=== PATIENT | male | born 1960 | race Caucasian/White ===

== ENCOUNTER 2024-07-03 16:02 | Outpatient (REF) | payer SELFPAY ==
[2024-07-03 17:53] LABS: MANUAL DIFF FLAG NO
[2024-07-03 18:05] LABS: Basophils Absolute Auto 0.1 X10*3/uL (0.0-0.2); Basophils Percent Auto 1.1 % (0-2); Eosinophils Absolute Auto 0.2 X10*3/uL (0.0-0.4); Eosinophils Percent Auto 1.7 % (0-4); Imm Gran Abs Auto 0.06 X10*3/uL (0.00-0.03); Imm Gran Pct Auto 0.6 % (0.0-0.4); Lymphocytes Absolute Auto 0.9 X10*3/uL (1.2-4.9); Lymphocytes Percent Auto 8.3 % (20-40); Mean Corpuscular HGB Conc 35.4 g/dl (31.0-36.0); Mean Corpuscular Hemoglobin 36.7 pg (27.0-33.0); Mean Corpuscular Volume 103.6 fL (80.0-98.0); Mean Platelet Volume 11.6 fL (9.4-12.4); Monocytes Absolute Auto 0.5 X10*3/uL (0.1-1.2); Monocytes Percent Auto 4.7 % (2-11); Neutrophils Absolute Auto 9.1 x10*3/uL (2.0-8.3); Neutrophils Percent Auto 83.6 % (45-73); Red Blood Count 1.69 X10*6/uL (4.60-5.80); Red Cell Distribution Width 23.9 % (11.0-16.0); White Blood Count 10.9 X10*3/uL (4.8-10.8)
[2024-07-03 18:30] LABS: Alanine Aminotransferase 30 U/L (0-40); Albumin Level 3.9 g/dL (3.5-5.0); Alkaline Phosphatase 73 U/L (39-117); Anion Gap 12 (12-20); Aspartate Amino Transferase 23 U/L (5-37); Bilirubin Total 0.4 mg/dL (0.0-1.0); Blood Urea Nitrogen 22 mg/dL (9-16); Calcium 8.6 mg/dL (8.4-10.2); Carbon Dioxide 21 mmol/L (22-29); Chloride 114 mmol/L (96-108); Estimated Glomerular Filt Rate > 60; Glucose Random 107 mg/dL (60-115); Potassium 3.7 mmol/L (3.3-5.1); Sodium 143 mmol/L (135-145); Total Protein 6.6 g/dL (6.5-8.0)
[2024-07-03 18:44] LABS: Prostate Specific Antigen 0.18 ng/mL (<0.05-4.0)
[2024-07-03 22:05] LABS: Platelet Count 70 X10*3/uL (160-400)
[2024-07-03 22:08] LABS: Hemoglobin 6.2 g/dl (14.0-18.0)
[2024-07-03 22:10] LABS: Hematocrit 17.5 % (42.0-52.0)
== END 2024-07-03 16:03 | disposition home or self-care (01) ==
LOC: HO.MANLDS 16:02
PROVIDERS: Visit Provider Internal Medicine
DX: K92.2 Gastrointestinal hemorrhage, unspecified (principal); Z12.5 Encounter for screening for malignant neoplasm of prostate
CPT/HCPCS: 36415; 80053; 84153; 85025

== ENCOUNTER 2024-11-04 15:37 | Outpatient (REF) | payer SELFPAY ==
[2024-11-04 17:55] LABS: MANUAL DIFF FLAG NO
[2024-11-04 18:11] LABS: Magnesium 2.1 mg/dL (1.6-2.6)
--- OUTSIDE RECORDS SUMMARY | 2024-11-04 18:50 | XMS_ITS | Data Portability ---
Author Organization [facility] Home Service Address [address] [place] [address] Assessment Encounter Date Assessment Date Assessment LastModified by Organization Details LastModified Time 07/03/2024 07/03/2024 we will try to get the records Not available 07/03/2024 15:48:23 08/31/2024 08/31/2024 [id number] [place] [id number] (PHILOSOPHY PROFESSOR) MDM MODERATE MUST MEET 2 OUT OF 3 ELEMENTS: PROBLEMS, DATA OR RISK ELEMENT 1: PROBLEMS ADDRESSED 1 OR MORE CHRONIC ILLNESS WITH EXACERBATION OR 2 OR MORE STABLE CHRONIC ILLNESSES OR 1 UNDIAGNOSED NEW PROBLEM OR 1 ACUTE ILLNESS W/SYMPTOMS OR 1 ACUTE COMPLICATED INJURY ELEMENT 2: DATA MUST MEET 1 OF 3 CATEGORIES CATEGORY 1: REVIEW OF PRIOR EXTERNAL NOTES, REVIEW OF RESULTS, ORDERING OF EACH TEST, ASSESSMENT REQUIRING INDEPENDENT HISTORIAN OR CATEGORY 2: INDEPENDENT INTERPRETATION OF TESTS BY ANOTHER PHYSICIAN OR SPECIALIST OR CATEGORY 3: DISCUSSION OF MGT OR TEST INTERPRETATION W/EXTERNAL PHYSICIAN OR SPECIALIST ELEMENT 3: RISK RISK OF COMPLICATIONS AND/OR MORBIDITY OR MORTALITY OF PATIENT MANAGEMENT PROVIDER MUST THOROUGHLY DOCUMENT EACH ELEMENT THAT IS COVERED Not available 08/31/2024 15:40:17 2024 2024 [id number] [place] [id number] (PHILOSOPHY PROFESSOR) MDM HIGH MUST MEET 2 OUT OF 3 ELEMENTS: PROBLEMS, DATA OR RISK ELEMENT 1: PROBLEMS 1 OR MORE CHRONIC ILLNESS W/SEVERE EXACERBATION, PROGRESSION MAY REQUIRE HOSPITAL LEVEL CARE OR 1 ACUTE OR CHRONIC ILLNESS OR INJURY THAT POSES A THREAT TO LIFE OR BODILY FUNCTION ELEMENT 2: DATA: MUST MEET 2 OF 3 CATEGORIES CATEGORY 1 REVIEW OF PRIOR EXTERNAL NOTES REVIEW OF THE RESULTS ORDERING OF EACH TEST ASSESSMENT REQUIRING INDEPENDENT HISTORIAN(S) CATEGORY 2: INDEPENDENT INTERPRETATION OF TESTS BY ANOTHER PROVIDER/SPECIALI ST CATEGORY 3: DISCUSSION OF MGT OR TEST INTERPRETATION W/EXTERNAL PHYSICIAN/SPECIAL IST ELEMENT 3: RISK HIGH RISK OF MORBIDITY FROM ADDITIONAL DIAGNOSTIC TESTING OR TREATMENT PROVIDER MUST THOROUGHLY DOCUMENT EACH ELEMENT THAT IS COVERED The patient presented to their appointment today for multiple concerns requiring moderate to high-level decision making and took over 40-45 minutes for an adequate and appropriate history, exam, assessment and treatment plan. This appointment was done with an established patient. Not available 2024 15:27:09 Plan of Treatment Reminders Order Date Submit Date Provider Last Modified By Organization Details Last Modified Time Details Appointments FOLLOW UP 15 2024 03:15P M DR HOWELL Not available Not available Not available FOLLOW UP 15 2024 04:00P M DR HOWELL Not available Not available Not available Lab magnesium , serum or plasma 2024 025 [facility], [address] [place] [address], [id number], 2024 15:32:22 CBC w/ auto diff 2024 025 [facility], [address] [place] [address], [id number], 2024 15:32:22 CBC w/ auto diff 2023 024 [facility] (Outpatient), [address] [place] [address], [id number], 09/01/2024 01:06:11 CBC w/ auto diff 2023 025 [facility] (Outpatient), [address] [place] [address], [id number], 10/17/2024 11:10:11 CBC w/ auto diff 2024 025 [facility] (Outpatient), [address] [place] [address], [id number], 10/17/2024 11:10:11 PSA, serum or plasma 2023 024 [facility], [address] [place], [id number], 07/03/2024 16:05:40 CBC w/ auto diff 2023 [facility], [address] [place] [address], [id number], 07/11/2024 09:54:37 CMP, serum or plasma 2023 024 [facility], [address] [place] [address], [id number], 07/06/2024 11:57:46 Referral colon & rectal surgeon referral - having recurrent bleeding and relates feeling mass in rectum that prolapses out 2023 [facility] Scheduling Dept, [address] [place] [address], [id number], 10/12/2024 10:20:27 Procedures None recorded. Surgeries None recorded. Imaging None recorded. Medication Orders None recorded. Patient TargetsNo targets recorded. Patient Instructions Encounter Date Encounter Id Patient Instructions Last Modified By Organization Details Last Modified Time 08/31/2024 [id number] anemia: care instructions Not available 08/31/2024 15:44:32 2024 [id number] anemia: care instructions Not available 2024 15:31:04 Reason for Referral Colon & Rectal Surgeon Refer ral for Painful rectal bleeding having recurrent bleeding and relates feeling mass in rectum that prolapses out Referring Physician: Jose Luis Howell, Internal Medicine, Encounter Date: 08/31/2024 Results Created Date Observation Date Name Description Value Unit Range Abnormal Flag Note LastModifiedBy Organization Detail LastModifiedTime Result Notes None recorded. Problems Name Problem SNOMED Code Status Onset Date Resolution Date Notes Provider Name and Address Organization Details Recorded Time Testicular mass 19261452 Active 2022 [facility] 5 08:46:22 Acute urinary tract infection 641064280 Active 2023 [facility] 5 08:46:25 Lower gastrointe stinal hemorrhage 80457988 [facility] 08:[facility] Diverticul um of urinary bladder 456200097 Active 2023 Annie ruano, [facility] 5 08:46:22 Anemia 766175743 Active [facility]23 [facility] 08:46:22 Secondary thrombocyt openia 712276133 [facility] 08:46:21 Painful rectal bleeding 556299748 [facility]23 [facility] 08:46:25 Primary hypomagnes emia 65651127 Active 2024 Jose Luis Howell DO [address] [place] [address], [phone], [facility] 5 15:28:07 Problem Notes None recorded. Medical Equipment None Reported. Allergies Allergen ID Allergen Name Allergen Category Reaction Reaction Severity Criticality Documentation Date Start Date Code Code System Note Provider Name and Address Organization Details Recorded Time 8493 Substance with sulfonami de structure and antibacte rial mechanism of action (substanc e) medicatio n Not available Not available [facility] 07/03/2024 37230 8003 SNOMED [facility] 4 15:34:23 8633 nitrofura ntoin medicatio n other severe high 08/31/2024 7454 RxNorm possi ble throm bocyo tpeni a/ anemi a Jose Luis Howell DO [address] [place] [address], [phone], [facility] 4 15:38:35 Medications Name Sig Start Date Stop Date Status Note LastModified by Organization Details LastModified Time cephalexin 250 mg capsule TAKE 1 CAPSULE BY MOUTH EVERY 12 HOURS FOR 7 DAYS 11/04 completed Not Available Not Available Not Available meloxicam 15 mg tablet TAKE 1 TABLET BY MOUTH EVERY DAY 08/31 completed Not Available Not Available Not Available tamsulosin 0.4 mg capsule TAKE 1 CAPSULE BY MOUTH EVERY DAY AT BEDTIME active Not Available Not Available No t Available pantoprazole 40 mg tablet,delay ed release TAKE 1 TABLET BY MOUTH EVERY DAY active Not Available Not Available No t Available cefuroxime axetil 500 mg tablet TAKE 1 TABLET BY MOUTH TWICE DAILY active Not Available Not Available No t Available levofloxacin 500 mg tablet TAKE 1 TABLET BY MOUTH EVERY 24 HOURS FOR 10 DAYS 06/30 completed Not Available Not Available Not Available nitrofuranto in monohydrate/ macrocrystal s 100 mg capsule TAKE 1 CAPSULE BY MOUTH EVERY 12 HOURS FOR 10 DAYS 08/31 completed Not Available Not Available Not Available multivitamin active Not Available Not Available Not Available Vitals Date Recorded Body height Body mass index (BMI) Body weight Heart rate Oxygen saturation Oxygen saturation in Arterial blood by Pulse oximetry Systolic blood pressure Diastolic blood pressure Provider Name and Address Organization Details Last Updated DateTime 4 187.96 cm 24.6 kg/m2 24144.9 4 g 73 /min 98 % 98 % 128 mm[Hg] 78 mm[Hg] Satinder Arreola [facility] 4 15:37:01 Date Recorded Body height Body mass index (BMI) Body weight Heart rate Oxygen saturation Oxygen saturation in Arterial blood by Pulse oximetry Systolic blood pressure Diastolic blood pressure Provider Name and Address Organization Details Last Updated DateTime 4 187.96 cm 24.7 kg/m2 09733.7 4 g 72 /min 99 % 99 % 118 mm[Hg] 60 mm[Hg] Jose Luis Howell, DO [address] [place], [address] [facility] 4 15:11:51 Date Recorded Body height Heart rate Oxygen saturation Oxygen saturation in Arterial blood by Pulse oximetry Systolic blood pressure Diastolic blood pressure Provider Name and Address Organization Details Last Updated DateTime 5 187.96 cm 70 /min 95 % 95 % 116 mm[Hg] 68 mm[Hg] Annie Rogers [facility] 5 15:21:49 Social History Question Answer Notes LastModified by Organizat ion Details LastModified Time Tobacco Smoking Status Former Sm[facility] 07/03/2024 15:35:22 What Is Your Level Of Alcohol Consumption? Occasional [email or web address] Information not available 07/03/2024 What Was The Date Of Your Most Recent Tobacco Screening? 2024 [email or web address] Information not available 2024 Sex: Unknown Functional Status None recorded. Mental Status None recorded. Family History Nothing Reported. Medical History No medical history recorded. Past Encounters Encounter ID Performer Location Encounter Start Date Encounter Closed Date Diagnosis/Indication Diagnosis SNOMED-CT Code Diagnosis ICD10 Code Diagnosis Note [id number] Jose Luis Howell [facility] [address] [facility],[place] [address] 07/03/2024 15:30:21 07/03/2024 16:10:37 Depression screening 426895829 Z13.31 neg Lower gastrointestinal hemorrhage 67733501 K92.2 need to get old chart he refused a colonoscop y or GI work up Diverticul um of urinary bladder 816984609 N32.3 [id number] Jose Luis Howell [facility] [address] [facility] [place] [address] 08/31/2024 15:04:44 08/31/2024 15:54:11 Anemia 307906686 D64.9 noted bone marrow findings are poss related to nitrofuran toin and has been Secondary thrombocytopenia 771147256 D69.59 as above we must worry about the reaction of nitrofuran toin pt has apparently continued to take this Painful re ctal bleeding 100155071 K62.5 [id number] Jose Luis Howell [facility] [address] [facility] [place] [address] 2024 14:52:21 2024 15:33:58 Depression screening 994960630 Z13.31 neg Anemia 965037972 D64.9 noted bone marrow findings are poss related to nitrofuran toin and has been of and doing well ever sincetakin g iron and is feeling more energyneed follow up hgb done today Lower gastrointestinal hemorrhage 67751585 K92.2 seems stablehe has not had any further bleeding Secondary thrombocytopenia 551675038 D69.59 as above we must worry about the reaction of nitrofuran toin pt has apparently continued to take this will rechk lab today Primary hypomagnesemia 35291553 E83.42 will need to have a follow up lab Diverticul um of urinary bladder 943601043 N32.3 cystoscopy for this saturday discussed procedure and what to expect and some aftercare Health Concerns Section Related Observation LastModified by Organization Detai ls LastModified Time None Recorded Concern Status LastModified by Organization Details LastModified Time None Recorded Advance Directives Directive None Recorded Payers Encounter Date Sequence Insurance Name Policy Number Policy Gonzalez Covered Member ID Gonzalez Member ID Guarantor Name 07/03/2024 1 *SELF PAY* Ed mund Stasz 08/31/2024 1 *SELF PAY* Ed mund Stasz 2024 1 *SELF PAY* Ed mund Stasz Notes Date Note Type Note Provider Name a nd Address Organization Details Recorded Time 07/03/2024 text/html here for jana christianson nd relates that he has been having trouble with emptying his bladderstates that he was severely anemic and required 4 units of PRBC but has no idea wher e he was bleeding from had work up and has had ct scan etc but the hospital did not find a bleed sourcewas told he had bad hemorrhoids apparently after much questioning Jose Luis Howell DO [address] [place] [address], [address], [facility] 07/03/2024 16:00:06 2024 text/html here since hospitaliztion and is feeling better overall now that his hgb is uprelates that he is going for a cystoscopy for the bladder diverticulum doing better eating better will have him have the cystoscopy on saturdayhe is not having any cp or sob here for rechk and relates that he has been having trouble with emptying his bladderstates that he was severely anemic and required 4 units of PRBC but has no idea wher e he was bleeding from had work up and has had ct scan etc but the hospital did not find a bleed sourcewas told he had bad hemorrhoids apparently after much questioning Jose Luis Howell DO [address] [place], [address], [facility] 2024 16:00:04
[2024-11-04 18:51] LABS: Basophils Absolute Auto 0.1 X10*3/uL (0.0-0.2); Basophils Percent Auto 1.2 % (0-2); Eosinophils Absolute Auto 0.3 X10*3/uL (0.0-0.4); Eosinophils Percent Auto 5.7 % (0-4); Imm Gran Abs Auto 0.04 X10*3/uL (0.00-0.03); Imm Gran Pct Auto 0.7 % (0.0-0.4); Lymphocytes Absolute Auto 1.6 X10*3/uL (1.2-4.9); Mean Corpuscular HGB Conc 33.2 g/dl (31.0-36.0); Mean Corpuscular Hemoglobin 31.6 pg (27.0-33.0); Mean Corpuscular Volume 95.4 fL (80.0-98.0); Mean Platelet Volume 11.5 fL (9.4-12.4); Monocytes Absolute Auto 0.5 X10*3/uL (0.1-1.2); Monocytes Percent Auto 8.5 % (2-11); Neutrophils Absolute Auto 3.1 x10*3/uL (2.0-8.3); Neutrophils Percent Auto 54.9 % (45-73); Red Blood Count 1.96 X10*6/uL (4.60-5.80); Red Cell Distribution Width 19.6 % (11.0-16.0); White Blood Count 5.6 X10*3/uL (4.8-10.8)
--- OUTSIDE RECORDS SUMMARY | 2024-11-04 18:51 | XMS_ITS | Encounter Summary ---
Author Organization [facility] Address [address] [place] [address] Care Team Providers Care Latin Teacher Name Role Phone Jose Luis Ahuja DO Primary Care Provider [phone] Encounter Details Date Type Department Care Team (Late st Contact Info) Description 10/05/[address] [facility] - Main Lab [address] [facility] [employer] [place] [address] Estuardo Myrick MD [address] [place] [address] Gross hematuria Social History Tobacco Use Types Packs/Day Years Used Date Smoking Tobacco: Never Assessed Sex and Gender Information Value Date Recorded Sex Assigned at Not on file Legal Sex Male 6:06 PM EST Gender Identity Not on file Sexual Orientation Not on file documented as of this encounter Plan of Treatment Not on file documented as of this encounter Procedures Procedure Name Priority Date/Time Associated Diagnosis Comments CULTURE URINE Routine 10/05/2024 3:30 PM EST Gross hematuria documented in this encounter Results * (ABNORMAL) Culture urine (10/05/2024 3:30 PM EST) Culture, Urine >100,000 CFU/mL Escherichia coli(A) ALISSA 10/07/2024 9:21 AM EST [facility] Urine Urine specimen obtained by clean catch procedure / Unknown 10/05/2024 3:30 PM EST 10/05/2024 6:11 PM EST Narrative [facility] - 10/07/2024 9:21 AM EST Additional colony types present in insignificant amounts. Organism Antibiotic Method Susceptibility Escherichia coli Amoxicillin/Clavulanate ALISSA 4 ug/ml: Susceptible Escherichia coli Ampicillin/Sulbactam ALISSA 4 ug/ml: Susceptible Escherichia coli Piperacillin/Tazobactam ALISSA <=4 ug/ml: Susceptible Escherichia coli Cefazolin (Urine) ALISSA 4 ug/ml: Susceptible Escherichia coli Cefoxitin ALISSA 16 ug/ml: Intermediate Escherichia coli Ceftazidime ALISSA <=0.5 ug/ml: Susceptible Escherichia coli Ceftriaxone ALISSA <=0.25 ug/ml: Susceptible Escherichia coli Cefepime ALISSA <=0.12 ug/ml: Susceptible Escherichia coli Meropenem ALISSA <=0.25 ug/ml: Susceptible Escherichia coli Amikacin ALISSA 2 ug/ml: Susceptible Escherichia coli Gentamicin ALISSA <=1 ug/ml: Susceptible Escherichia coli Ciprofloxacin ALISSA 0.5 ug/ml: Intermediate Escherichia coli Levofloxacin ALISSA 1 ug/ml: Intermediate Escherichia coli Nitrofurantoin ALISSA <=16 ug/ml: Susceptible Escherichia coli Trimethoprim/Sulfamethoxazole ALISSA <=20 ug/ml: Susceptible us Estuardo Myrick MD LAB MICROBIOLOGY - GENERA L ORDERABLES Edited Result - Final [facility] [address] [place] [address], documented in this encounter Visit Diagnoses Diagnosis Gross hematuria documented in this encounter Care Teams Latin Teacher Relationship Specialty Start Date End Date Jose Luis Ahuja DO [address] [facility] [address] [place], [place] PCP - General Internal Medicine 10/05/24 documented as of this encounter
--- OUTSIDE RECORDS SUMMARY | 2024-11-04 18:51 | XMS_ITS | Continuity of Care Document ---
Author Organization [place] [facility], [facility] Address [address] [facility] [address] Assessment Encounter Date Assessment Date Assessment LastModified by Organization Details LastModified Time 2024 2024 [id number] [place] [id number] (CT TECHNICIAN) MDM HIGH MUST MEET 2 OUT OF [...] Last Modified Time Details Appointments FOLLOW UP 2024 03:15P M DR HOWELL Not available Not available Not available FOLLOW UP 2024 04:00P M DR HOWELL Not available Not available Not available Lab magnesiu m, serum or plasma 202405/ 025 [facility], [address] [place] [address], [place], [address], 2024 15:32:22 CBC w/ auto diff 2024 025 [facility], [address] [place] [address], [place], [address], 2024 15:32:22 Referral None recorded . Procedures None recorded . Surgeries None recorded . Imaging None recorded . Medication Orders None recorded . Patient TargetsNo targets recorded. Patient Instructions Encounter Date Encounter Id Patient Instructions Last Modified By Organization Details Last Modified Time 2024 [id number] anemia: care instructions Not available 2024 15:31:04 Reason for Referral None Reported. Problems Name Problem SNOMED Code Status Onset Date Resolution Date Notes Provider Name and Address Organization Details Recorded Time Testicular mass 49964619 Active 2022 Annie ruano [facility] 5 08:46:22 Acute urinary tract infection 120131507 Active 2023 Annie ruano [facility] 5 08:46:25 Lower gastrointe stinal hemorrhage 57545568 Active 2023 Annie ruano [facility] 5 08:46:25 Diverticul um of urinary bladder 651663392 Active 2023 Annie ruano [facility] 5 08:46:22 Anemia 231040218 Active 2023 Annie ruano [facility] 5 08:46:22 Secondary thrombocyt openia 382929932 Active 2023 Annie ruano [facility] 5 08:46:21 Painful rectal bleeding 523897519 Active 2023 Annie ruano [facility] 5 08:46:25 Primary hypomagnes emia 16833008 Active 2024 Jose Luis Howell, DO [address] [facility], [place], [address], [facility] 5 15:28:07 Problem Notes None recorded. Medical Equipment None Reported. Allergies Allergen ID Allergen Name Allergen Category Reaction Reaction Severity Criticality Documentation Date Start Date Code Code System Note Provider Name and Address Organization Details Recorded Time 8493 Substance with sulfonami de structure and antibacte rial mechanism of action (substanc e) medicatio n Not available Not available high 07/03/2024 57200 8003 SNOMED Satinder ruano [facility] 15:34:23 8633 nitrofura ntoin medicatio n other severe high 08/31/2024 7454 RxNorm possi ble throm bocyo tpeni a/ anemi a Jose Luis Howell, DO [address] [place], [address] 4 15:38:35 Medications Name Sig Start Date [...] Not Available Vitals Date Recorded Body height Heart rate Oxygen saturation Oxygen saturation in Arterial blood by Pulse oximetry Systolic blood pressure Diastolic blood pressure Provider Name and Address Organization Details Last Updated DateTime 5 187.96 cm 70 /min 95 % 95 % 116 mm[Hg] 68 mm[Hg] Annie Rogers [facility] 5 15:21:49 Social History Question Answer Notes LastModified by Organizat ion Details LastModified Time Tobacco Smoking Status Former Smoker Satinder Arreola [facility] 07/03/2024 15:35:22 What Is Your Level Of [...] SNOMED-CT Code Diagnosis ICD10 Code Diagnosis Note [id number] Jose Luis Howell [facility] [address] [facility] [address],[place] [address] 2024 14:52:21 2024 15:33:58 Depression screening 453973360 Z13.31 neg Anemia 643554808 D64.9 noted bone marrow findings are poss related to nitrofuran toin and has been of and doing well ever sincetakin g iron and is feeling more energyneed follow up hgb done today Lower gastrointestinal hemorrhage 69768469 K92.2 seems stablehe has not had any further bleeding Secondary thrombocytopenia 982196138 D69.59 as above we must worry about the reaction of nitrofuran toin pt has apparently continued to take this will rechk lab today Primary hypomagnesemia 16438645 E83.42 will need to have a follow up lab Diverticul um of urinary bladder 533648982 N32.3 cystoscopy for this saturday discussed procedure and what to expect and some aftercare Health Concerns Section Related Observation LastModified by Organization Detai ls LastModified Time None Recorded Concern Status LastModified by Organization Details LastModified Time None Recorded Payers Encounter Date Sequence Insurance Name Policy Number Policy Gonzalez Covered Member ID Gonzalez Member ID Guarantor Name 2024 1 *SELF PAY* Errol Gardner Notes Date Note Type Note Provider Name a nd Address Organization Details Recorded Time 2024 text/html here since hospitaliztion and is [...] hemorrhoids apparently after much questioning Jose Luis Howell, DO [address] [facility], [place], [address], [facility] 2024 16:00:04
--- OUTSIDE RECORDS SUMMARY | 2024-11-04 18:51 | XMS_ITS | Clinical Summary ---
Author Organization 299 [facility] Address [address] [place] [address] Phone Care Team Providers Care Radio News Anchor Name Role Phone Jose Luis Ahuja Primary Care Provider [phone] Encounters Date Type Department Care Team Description 10/05/2024 Lab Requisition [facility] - Main Lab [address] [facility] [place] [address] Estuardo Myrick MD Gross hematuria from Last 3 Months Social History Tobacco Use Types Packs/Day Years Used Date Smoking Tobacco: Never Assessed Sex and Gender Information Value Date Recorded Sex Assigned at Not on file Legal Sex Male 6:06 PM EST Gender Identity Not on file Sexual Orientation Not on file Plan of Treatment Health Maintenance Due Date Last Done Comments DTaP,Tdap,and Td Vaccines (1 - Tdap) 1977 Pneumococcal Vaccine: 50+ Ye ars (1 of 1 - PCV) 2008 Zoster Vaccines (1 of 2) 2008 COVID-19 Vaccine (2023-2 5 season) 2024 Influenza Vaccine (#1) 2024 Cholesterol Screening (Lipid Panel) 10/06/2024 Depression Screening 10/06/2024 Falls Risk Assessment 10/06/2024 Hepatitis C Screening 10/06/2024 Social Influencers of Health Screening 10/06/2024 Colorectal Cancer Screening: Stool Based Tests (FOBT/FIT) 10/18/2025 10/18/2024 RSV Immunization Patients 60 + Years Old (1 - 1-dose 75+ series) 2033 HIB Vaccines Aged Out No longer eligi ble based on patient's age to complete this topic HPV Vaccines Aged Out No longer eligi ble based on patient's age to complete this topic Hepatitis A Vaccines Aged Out No long er eligible based on patient's age to complete this topic Hepatitis B Vaccines Aged Out No long er eligible based on patient's age to complete this topic IPV Vaccines Aged Out No longer eligi ble based on patient's age to complete this topic MMR Vaccines Aged Out No longer eligi ble based on patient's age to complete this topic Meningococcal ACWY Vaccine Aged Out N o longer eligible based on patient's age to complete this topic Meningococcal B Vacine Aged Out No lo nger eligible based on patient's age to complete this topic Pneumococcal Vaccine: Pediat rics (0 to 5 Years) and At-Risk Patients (6 to 64 Years) Aged Out No longer eligi ble based on patient's age to complete this topic RSV Immunization Patients Un cathie 20 months Aged Out No longer eligible b ased on patient's age to complete this topic Varicella Vaccines Aged Out No longer eligible based on patient's age to complete this topic Procedures Procedure Name Priority Date/Time Associated Diagnosis Comments CULTURE URINE Routine 10/05/2024 3:30 PM EST Gross hematuria from Last 3 Months Results * (ABNORMAL) Culture urine (10/05/2024 3:30 PM EST) Culture, Urine >100,000 CFU/mL Escherichia coli(A) ALISSA 10/07/2024 9:21 AM EST [facility] Urine Urine specimen obtained by clean catch procedure / Unknown 10/05/2024 3:30 PM EST 10/05/2024 6:11 PM EST Narrative [facility] - 10/07/2024 9:21 AM [...] GENERA L ORDERABLES Edited Result - Final [facility] [address] [place] [address], from Last 3 Months Care Teams Radio News Anchor Relationship Specialty Start Date End Date Jose Luis Ahuja DO [address] [facility] [address] [place], [place] PCP - General Internal Medicine 10/05/24
[2024-11-04 18:59] LABS: Platelet Count 54 X10*3/uL (160-400)
[2024-11-04 19:01] LABS: Hematocrit 18.7 % (42.0-52.0); Hemoglobin 6.2 g/dl (14.0-18.0)
== END 2024-11-04 15:38 | disposition home or self-care (01) ==
LOC: HO.MANLDS 15:37
PROVIDERS: Visit Provider Internal Medicine
DX: E83.42 Hypomagnesemia (principal)
CPT/HCPCS: 36415; 83735; 85025

== ENCOUNTER 2024-12-07 16:19 | Outpatient (REF) | payer SELFPAY ==
[2024-12-07 17:44] LABS: MANUAL DIFF FLAG NO
[2024-12-07 17:48] LABS: Basophils Absolute Auto 0.1 X10*3/uL (0.0-0.2); Basophils Percent Auto 1.2 % (0-2); Eosinophils Absolute Auto 0.6 X10*3/uL (0.0-0.4); Eosinophils Percent Auto 9.9 % (0-4); Imm Gran Abs Auto 0.02 X10*3/uL (0.00-0.03); Imm Gran Pct Auto 0.3 % (0.0-0.4); Lymphocytes Absolute Auto 1.8 X10*3/uL (1.2-4.9); Lymphocytes Percent Auto 31.3 % (20-40); Mean Corpuscular HGB Conc 34.5 g/dl (31.0-36.0); Mean Corpuscular Hemoglobin 32.8 pg (27.0-33.0); Mean Corpuscular Volume 94.8 fL (80.0-98.0); Mean Platelet Volume 11.2 fL (9.4-12.4); Monocytes Absolute Auto 0.5 X10*3/uL (0.1-1.2); Monocytes Percent Auto 8.7 % (2-11); Neutrophils Absolute Auto 2.8 x10*3/uL (2.0-8.3); Neutrophils Percent Auto 48.6 % (45-73); Red Blood Count 1.74 X10*6/uL (4.60-5.80); Red Cell Distribution Width 24.3 % (11.0-16.0); White Blood Count 5.8 X10*3/uL (4.8-10.8)
[2024-12-07 18:01] LABS: Platelet Count 69 X10*3/uL (160-400)
--- OUTSIDE RECORDS SUMMARY | 2024-12-07 18:42 | XMS_ITS | Continuity of Care Document ---
Author Organization [facility] Address [address] [facility] [place] [address] Assessment Encounter Date Assessment Date Assessment LastModified by Organization Details LastModified Time 12/07/2024 12/07/2024 [id number] [place] [id number] (POLL CLERK) MDM MODERATE MUST MEET 2 OUT OF [...] EACH ELEMENT THAT IS COVERED Not available 12/07/2024 16:16:50 Plan of Treatment Reminders Order Date Submit Date Provider Last Modified By Organization Details Last Modified Time Details Appointments FOLLOW UP 15 2024 04:00P M DR HOWELL Not available Not available Not available FOLLOW UP 15 2024 03:30P M DR HOWELL Not available Not available Not available Lab CBC 2024 025 [facility], [address] [place] [address], [place], [address], 12/07/2024 16:18:14 Referral None recorded . Procedures None recorded . Surgeries None recorded . Imaging None recorded . Medication Orders None recorded . Patient TargetsNo targets recorded. Patient InstructionsNo instructions recorded. Reason for Referral None Reported. Problems Name Problem SNOMED Code Status Onset Date Resolution Date Notes Provider Name and Address Organization Details Recorded Time Testicular mass 03949295 Active 2022 Annie ruano [facility] 5 08:46:22 Acute urinary tract infection 283385259 Active 2023 Annie ruano, [facility] 5 08:46:25 Lower gastrointe stinal hemorrhage 42252879 Active 2023 Annie ruano, [facility] 5 08:46:25 Diverticul um of urinary bladder 222460736 Active 2023 Annie ruano, [facility] 5 08:46:22 Anemia 013793611 [facility] 5 08:46:22 Secondary thrombocyt openia 128554051 [facility] 5 08:46:21 Painful rectal bleeding 583463407 [facility] 5 08:46:25 Primary hypomagnes emia 56677613 Active 2024 Jose Luis Howell DO [address] [place] [address], [phone], [facility] 5 15:28:07 Problem Notes None recorded. Medical Equipment None Reported. Allergies Allergen ID Allergen Name Allergen Category Reaction Reaction Severity Criticality Documentation Date Start Date Code Code System Note Provider Name and Address Organization Details Recorded Time 8493 Substance with sulfonami de structure and antibacte rial mechanism of action (substanc e) medicatio n Not available Not available high 07/03/2024 78251 8003 SN[facility]ED [facility] 4 15:34:23 8633 nitrofura ntoin medicatio n other severe high 08/31/2024 7454 RxNorm possi ble throm bocyo tpeni a/ anemi a Jose Luis Howell, DO [address] [place] [address], [phone], [facility], [place], [facility] 4 15:38:35 Medications Name Sig [...] Details Last Updated DateTime 5 187.96 cm 52 /min 98 % 98 % 116 mm[Hg] 68 mm[Hg] María Rosales [facility] 5 15:53:54 Social History Question Answer Notes LastModified by Organizat ion Details LastModified Time Tobacco Smoking Status Former Smoker Satinder ruano, [facility] 07/03/2024 15:35:22 What Is Your Level Of Alcohol Consumption? Occasional [email or web address] Information not available 07/03/2024 What Was The Date Of Your Most Recent Tobacco Screening? 12/07/2024 [email or web address] Information not available 12/07/2024 Sex: Unknown Functional Status None recorded. Mental Status None recorded. Family History Nothing Reported. Medical History No medical history recorded. Past Encounters Encounter ID Performer Location Encounter Start Date Encounter Closed Date Diagnosis/Indication Diagnosis SNOMED-CT Code Diagnosis ICD10 Code Diagnosis Note [id number] Jose Luis Howell DO [facility] Internal Medicine [address] [facility],[place] [address] 12/07/2024 15:36:56 12/07/2024 16:18:59 Anemia 023850261 D64.9 noted bone marrow findings are poss related to nitrofuran toin and has been of and doing well ever sincetakin g iron and is feeling more energyneed follow up hgb done today Depression screening 171 248453 Z13.31 neg Lower gastrointestinal hemorrhage 60995243 K92.2 seems stablehe has not had any further bleeding Secondary thrombocytopenia 597752139 D69.59 as above we must worry about the reaction of nitrofuran toin pt has apparently continued to take this will rechk lab today Primary hypomagnesemia 13994032 E83.42 will need to have a follow up lab Health Concerns Section Related Observation LastModified by Organization Detai ls LastModified Time None Recorded Concern Status LastModified by Organization Details LastModified Time None Recorded Payers Encounter Date Sequence Insurance Name Policy Number Policy Gonzalez Covered Member ID Gonzalez Member ID Guarantor Name 12/07/2024 1 *SELF PAY* Errol Gardner Notes Date Note Type Note Provider Name and Address Organization Details Recorded Time 5 text/html AnemiaReported bypatient.Timing:better Associated Symptoms:no shortness of breath; no chest pain; no abdominal pain; no nausea; no vomiting; no melena; no blood in stool; no weakness; no fatigue; no palpitations; no excessive sweating; normal nails; tolerant of cold; no nonfood cravings; no behavior problems; no symptoms of peripheral neuropathy; normal balance; no jaundice; no pallor; no weight lossGI BleedingReported bypatient.Quality:no pain Associated Symptoms:no straining; no diarrhea; no cramping; no hard stools here fr rechk and is doing better relates that he has been ok and taking ironrelates will be eval by surg for his hemorrhoidsgetting his insurance squared away Jose Luis Howell, [address] [facility], [place], [address], [facility], [place] 12/07/2024 16:18:49
--- OUTSIDE RECORDS SUMMARY | 2024-12-07 18:42 | XMS_ITS | Encounter Summary ---
Author Organization [facility] Address [address] [place] [address] Care Team Providers Care Testing Analyst Name Role Phone Jose Luis Ahuja DO Primary Care Provider Encounter Details Date Type Department Care Team (Late st Contact Info) Description 10/05/2024 Lab Requisition [facility] - Main Lab [address] [facility] [place] [address] Estuardo Myrick MD [address] [place] [address] Gross hematuria Social History Tobacco [...] Escherichia coli(A) ALISSA 10/07/2024 9:21 AM EST [facility] Urine Urine specimen obtained by clean catch procedure / Unknown 10/05/2024 3:30 PM EST 10/05/2024 6:11 PM EST Narrative [facility] - 10/07/2024 9:21 AM EST Additional [...] GENERA L ORDERABLES Edited Result - Final [facility] [address] [place] [address], documented in this encounter Visit Diagnoses Diagnosis Gross hematuria documented in this encounter Care Teams Testing Analyst Relationship Specialty Start Date End Date Jose Luis Ahuja DO [address] [facility] [address] [place], [place] PCP - General Internal Medicine 10/05/24 documented as of this encounter
--- OUTSIDE RECORDS SUMMARY | 2024-12-07 18:42 | XMS_ITS | Data Portability ---
Author Organization [facility] Address [address] [place] [address] Assessment Encounter Date Assessment Date Assessment LastModified by Organization Details LastModified Time 07/03/2024 07/03/2024 we will try to get the records Not available 07/03/2024 15:48:23 08/31/2024 08/31/2024 [id number] [place] [id number] (PRESIDENTIAL SUPPORT SPECIALIST) MDM MODERATE MUST MEET 2 OUT OF [...] COVERED Not available 08/31/2024 15:40:17 2024 20[place] [id number] [place] [id number] (PRESIDENTIAL SUPPORT SPECIALIST) MDM HIGH MUST MEET 2 OUT OF [...] an established patient. Not available 2024 15:27:09 12/07/2024 12/07/20[place] [id number] [place] [id number] (PRESIDENTIAL SUPPORT SPECIALIST) MDM MODERATE MUST MEET 2 OUT OF [...] available Not available Lab CBC 2024 025 [facility], [address] [place] [address], [id number], 12/07/2024 16:18:14 magnesium , serum or plasma 2024 025 [facility], [address] [place] [address], [id number], 2024 15:32:22 CBC w/ auto diff 2024 025 [facility], [address] [place] [address], [id number], 11/05/2024 13:00:43 CBC w/ auto diff 2023 024 [facility] Services (Outpatient), [address] [place] [address], [id number], 09/01/2024 01:06:11 CBC w/ auto diff 2023 025 [facility] Services (Outpatient), [address] [place] [address], [address], 10/17/2024 11:10:11 CBC w/ auto diff 2024 025 [facility] Services (Outpatient), [address] [place] [address], [address], 11/19/2024 19:06:55 CBC w/ auto diff 2024 025 [facility] Services (Outpatient), [address] [place] [address], [address], 11/20/2024 16:28:40 CBC w/ auto diff [email or web address] [place] [address] Lab Services (Outpatient), [address] [place] [address], [id number], 12/07/2024 16:12:18 PSA, serum or plasma 2023 024 [facility], [address] [place] [address], [id number], 07/03/2024 16:05:40 CBC w/ auto diff 2023 024 [facility], [address] [place] [address], [address], 07/11/2024 09:54:37 CMP, serum or plasma 2023 024 [facility], [address] [place] [address], [id number], 07/06/2024 11:57:46 Referral colon & rectal surgeon referral - having recurrent bleeding and relates feeling mass in rectum that prolapses out 2023 024 [facility] Colorectal Surgery Scheduling Dept, [facility] [place], [address], 10/12/2024 10:20:27 Procedures None recorded. Surgeries None recorded. Imaging None recorded. Medication Orders None recorded. Patient TargetsNo targets recorded. Patient Instructions Encounter Date Encounter Id Patient Instructions Last Modified By Organization Details Last Modified Time 08/31/2024 [id number] anemia: care instructions Not available 08/31/2024 15:44:32 2024 [id number] anemia: care instructions Not available 2024 15:31:04 [...] Address Organization Details Recorded Time Testicular mass 11833429 Active 2022 [facility] 5 08:46:22 Acute urinary tract infection 752866602 Active 2023 [facility] 5 08:46:25 Lower gastrointe stinal hemorrhage 16542030 Active 2023 Annie ruano [facility] 5 08:46:25 Diverticul um of urinary bladder 553937260 Active 2023 [facility] 5 08:46:22 Anemia 911841825 Active 2023 Annie ruano [facility] 5 08:46:22 Secondary thrombocyt openia 890133949 Active 2023 [facility] 5 08:46:21 Painful rectal bleeding 071546605 [facility] 20[facility] 5 08:46:25 Primary hypomagnes emia 57536788 Active 2024 Jose Luis Cavazos Christopatel, DO [address] [place], [address], [facility] 5 15:28:07 Problem Notes None recorded. Medical Equipment None Reported. Allergies Allergen ID Allergen Name Allergen Category Reaction Reaction Severity Criticality Documentation Date Start Date Code Code System Note Provider Name and Address Organization Details Recorded Time 8493 Substance with sulfonami de structure and antibacte rial mechanism of action (substanc e) medicatio n Not available Not available high 07/03/2024 61555 8003 SNOMED [facility] 4 15:34:23 8633 nitrofura ntoin medicatio n other severe high 08/31/2024 7454 RxNorm possi ble throm bocyo tpeni a/ anemi a Jose Luis Howell, DO [address] [place], [address], [facility] 4 15:38:35 Medications Name Sig Start Date [...] Updated DateTime 4 187.96 cm 24.6 kg/m2 19624.9 4 g 73 /min 98 % 98 % 128 mm[Hg] 78 mm[Hg] Satinder Arreola [facility] 4 15:37:01 Date Recorded Body height Body mass index (BMI) Body weight Heart rate Oxygen saturation Oxygen saturation in Arterial blood by Pulse oximetry Systolic blood pressure Diastolic blood pressure Provider Name and Address Organization Details Last Updated DateTime 4 187.96 cm 24.7 kg/m2 78954.7 4 g 72 /min 99 % 99 % 118 mm[Hg] 60 mm[Hg] Jose Luis Howell, DO [address] [place], [address] [place] [address] Internal [facility] 4 15:11:51 Date Recorded Body height Heart rate Oxygen saturation Oxygen saturation in Arterial blood by Pulse oximetry Systolic blood pressure Diastolic blood pressure Provider Name and Address Organization Details Last Updated DateTime 5 187.96 cm 70 /min 95 % 95 % 116 mm[Hg] 68 mm[Hg] Annie Ken [facility] 5 15:21:49 Date Recorded Body height Heart rate Oxygen saturation Oxygen saturation in Arterial blood by Pulse oximetry Systolic blood pressure Diastolic blood pressure Provider Name and Address Organization Details Last Updated DateTime 5 187.96 cm 52 /min 98 % 98 % 116 mm[Hg] 68 mm[Hg] María Rosales [facility] 5 15:53:54 Social History Question Answer Notes LastModified by Organizat ion Details LastModified Time Tobacco Smoking Status Former Smoker Satinder ruano [facility] 07/03/2024 15:35:22 What Is Your Level Of Alcohol Consumption? Occasional [email or web address] Information not available 07/03/2024 What Was The Date Of Your Most Recent Tobacco Screening? 12/07/2024 [email or web address] Information not available 12/07/2024 Sex: Unknown Functional Status None recorded. Mental Status None recorded. Family History Nothing Reported. Medical History No medical history recorded. Past Encounters Encounter ID Performer Location Encounter Start Date Encounter Closed Date Diagnosis/Indication Diagnosis SNOMED-CT Code Diagnosis ICD10 Code Diagnosis Note [id number] Jose Luis QuirogaMargarette Howell [facility] [address] [facility] [address] 07/03/2024 15:30:21 07/03/2024 16:10:37 Depression screening 911882933 Z13.31 neg Lower gastrointestinal hemorrhage 06964561 K92.2 need to get old chart he refused a colonoscop y or GI work up Diverticul um of urinary bladder 092259419 N32.3 [id number] Jose Luis Howell [facility] Internal Medicine [address] [facility],[place] [address] 08/31/2024 15:04:44 08/31/2024 15:54:11 Anemia 343012654 D64.9 noted bone marrow findings are poss related to nitrofuran toin and has been Secondary thrombocytopenia 679173390 D69.59 as above we must worry about the reaction of nitrofuran toin pt has apparently continued to take this Painful re ctal bleeding 784641238 K62.5 [id number] Jose Luis Macy Howell [facility] Internal Medicine [address] [facility],[place] [address] 2024 14:52:21 11/06/2024 08:03:59 Depression screening 662756393 Z13.31 neg Anemia 725139436 D64.9 noted bone marrow findings are poss related to nitrofuran toin and has been of and doing well ever sincetakin g iron and is feeling more energyneed follow up hgb done today Lower gastrointestinal hemorrhage 28038633 K92.2 seems stablehe has not had any further bleeding Secondary thrombocytopenia 548313301 D69.59 as above we must worry about the reaction of nitrofuran toin pt has apparently continued to take this will rechk lab today Primary hypomagnesemia 52403372 E83.42 will need to have a follow up lab Diverticul um of urinary bladder 735811285 N32.3 cystoscopy for this saturday discussed procedure and what to expect and some aftercare [id number] DO [facility] [address] [facility],[place] [address] 12/07/2024 15:36:56 12/07/2024 16:18:59 Anemia 367592772 D64.9 noted bone marrow findings are poss related to nitrofuran toin and has been of and doing well ever sincetakin g iron and is feeling more energyneed follow up hgb done today Depression screening 171 925797 Z13.31 neg Lower gastrointestinal hemorrhage 41327300 K92.2 seems stablehe has not had any further bleeding Secondary thrombocytopenia 592645081 D69.59 as above we must worry about the reaction of nitrofuran toin pt has apparently continued to take this will rechk lab today Primary hypomagnesemia 58517850 E83.42 will need to have a follow [...] 2024 1 *SELF PAY* Ed mund Stasz 12/07/2024 1 *SELF PAY* Ed mund Stasz Notes Date Note Type Note Provider Name and Address Organization Details Recorded Time 4 text/html here for rechk and relates that he [...] much questioning Jose Luis Howell DO [address] [facility], [place], [address], [facility] 07/03/2024 16:00:06 5 text/html here since hospitaliztion and is feeling [...] much questioning Jose Luis Howell DO [address] [place], [address], [facility] 2024 16:00:04 5 text/html AnemiaReported bypatient.Timing:better Associated Symptoms:no shortness [...] hemorrhoidsgetting his insurance squared away Jose Luis Howell DO [address] [place], [address], [facility] 12/07/2024 16:18:49
--- OUTSIDE RECORDS SUMMARY | 2024-12-07 18:42 | XMS_ITS | Clinical Summary ---
Author Organization 299 [facility] Address [address] [place] [address] Phone Care Team Providers Care Interim Controller Name Role Phone Jose Luis Ahuja Primary Care Provider [phone] Encounters Date Type Department Care Team Description 10/05/2024 Lab Requisition [facility] - Main Lab [address] [facility] [employer] [address] Estuardo Myrick MD Gross hematuria [...] Based Tests (FOBT/FIT) 10/18/2025 10/18/2024 RSV Immunization Adult Patie nts (1 - 1-dose 75+ series) 2033 HIB [...] age to complete this topic Meningococcal B Vaccine Aged Out No l onger eligible based on patient's age to complete [...] Escherichia coli(A) ALISSA 10/07/2024 9:21 AM EST [facility] Urine Urine specimen obtained by clean catch procedure / Unknown 10/05/2024 3:30 PM EST 10/05/2024 6:11 PM EST Narrative [facility] - 10/07/2024 9:21 AM EST [...] GENERA L ORDERABLES Edited Result - Final [facility] [address] [place] [address], from Last 3 Months Care Teams Interim Controller Relationship Specialty Start Date End Date Jose Luis Ahuja DO [address] [facility] [address] [place], [place] PCP - General Internal Medicine 10/05/24
[2024-12-07 20:25] LABS: Hematocrit 16.5 % (42.0-52.0)
[2024-12-07 21:29] LABS: Hemoglobin 5.7 g/dl (14.0-18.0)
== END 2024-12-07 16:20 | disposition home or self-care (01) ==
LOC: HO.MANLDS 16:19
PROVIDERS: Visit Provider Internal Medicine
DX: K92.2 Gastrointestinal hemorrhage, unspecified (principal)
CPT/HCPCS: 36415; 85025

== ENCOUNTER 2025-02-09 16:23 | Outpatient (REF) | payer MEDICARE, SELFPAY ==
[2025-02-09 18:04] LABS: MANUAL DIFF FLAG NO
[2025-02-09 18:19] LABS: Basophils Absolute Auto 0.1 X10*3/uL (0.0-0.2); Basophils Percent Auto 0.7 % (0-2); Eosinophils Absolute Auto 0.3 X10*3/uL (0.0-0.4); Eosinophils Percent Auto 4.6 % (0-4); Imm Gran Abs Auto 0.02 X10*3/uL (0.00-0.03); Imm Gran Pct Auto 0.3 % (0.0-0.4); Lymphocytes Absolute Auto 1.8 X10*3/uL (1.2-4.9); Lymphocytes Percent Auto 26.7 % (20-40); Mean Corpuscular HGB Conc 34.4 g/dl (31.0-36.0); Mean Corpuscular Volume 104.8 fL (80.0-98.0); Monocytes Absolute Auto 0.5 X10*3/uL (0.1-1.2); Monocytes Percent Auto 7.7 % (2-11); Red Blood Count 1.25 X10*6/uL (4.60-5.80); White Blood Count 6.7 X10*3/uL (4.8-10.8)
--- OUTSIDE RECORDS SUMMARY | 2025-02-09 19:01 | XMS_ITS | Data Portability ---
Author Organization [facility], Telehealth Patient Home Address [address] [place] [address] Assessment Encounter Date Assessment Date Assessment LastModified by Organization Details LastModified Time 08/31/2024 08/31/2024 [id number] [place] [id number] (CALCULATION REVIEWER) MDM MODERATE MUST MEET 2 OUT OF [...] COVERED Not available 08/31/2024 15:40:17 2024 2024 [id number] [place] [id number] (CALCULATION REVIEWER) MDM HIGH MUST MEET 2 OUT OF [...] patient. Not available 2024 15:27:09 12/07/2024 12/07/2024 [id number] [place] [id number] (CALCULATION REVIEWER) MDM MODERATE MUST MEET 2 OUT OF [...] THAT IS COVERED Not available 12/07/2024 16:16:50 01/05/2025 01/05/2025 [id number] [place] [id number] (CALCULATION REVIEWER) MDM MODERATE MUST MEET 2 OUT OF [...] EACH ELEMENT THAT IS COVERED Not available 01/05/2025 15:41:55 Plan of Treatment Reminders Order Date Submit Date Provider Last Modified By Organization Details Last Modified Time Details Appointments FOLLOW UP 2024 04:00P M DR HOWELL Not available Not available Not available Pre-Op 2024 03:30P M DR HOWELL Not available Not available Not available FOLLOW UP 2024 04:00P M DR HOWELL Not available Not available Not available Lab CBC w/ auto diff 2024 025 [facility] (Outpatient), [address] [place] [address], [id number], 01/05/2025 15:47:16 iron + TIBC + ferritin, serum 2024 025 [facility], [address] [place] [address], [id number], 01/05/2025 15:52:02 CBC 2024 025 [facility], [address] [place] [address], [id number], 12/08/2024 13:23:12 magnesium , serum or plasma 2024 025 [facility], [address] [place] [address], [id number], 2024 15:32:22 CBC w/ auto diff 2024 025 [facility], [address] [place] [address], [id number], 11/05/2024 13:00:43 CBC w/ auto diff 2023 024 [facility] (Outpatient), [address] [place] [address], [id number], 09/01/2024 01:06:11 CBC w/ auto diff 2023 025 [facility] (Outpatient), [address] [place] [address], [id number], 10/17/2024 11:10:11 CBC w/ auto diff 2024 025 [facility] (Outpatient), [address] [place] [address], [id number], 11/19/2024 19:06:55 CBC w/ auto diff 2024 025 [facility] (Outpatient), [address] [place], [id number], 11/20/2024 16:28:40 CBC w/ auto diff 2024 025 [facility] (Outpatient), [address] [place], [id number], 12/10/2024 21:10:21 CBC w/ auto diff 2024 025 [facility] (Outpatient), [address] [place] [address], [id number], 12/10/2024 21:10:21 Referral colon & rectal surgeon referral - having recurrent bleeding and relates feeling mass in rectum that prolapses out 2023 024 [facility] Scheduling Dept, [address], [place], [id number], 10/12/2024 10:20:27 Procedures None recorded. Surgeries None recorded. Imaging None recorded. Medication Orders None recorded. Patient TargetsNo targets recorded. 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 Active 2022 Annie ruano [place] - [facility] 08:46:22 Acute urinary tract infection 790348085 Active 2023 Annie ruano, [facility] 5 08:46:25 Lower gastrointe stinal hemorrhage 60866013 [facility] 08[facility] Diverticul um of urinary bladder 915186002 [facility] 08:46:22 Anemia 693488055 Active 2023 Anniebonnie ruano, [facility] 5 08:46:22 Secondary thrombocyt openia 751052028 [facility] 08:46:21 Painful rectal bleeding 356753445 [facility] 08:46:25 Primary hypomagnes emia 37325111 Active 2024 Jose Luis Howell, [address], [address], [facility] 5 15:28:07 Recurrent urinary tract infection 357776971 Active 2024 Jose Luis Howell, [address], [address], [facility] 5 16:18:39 Problem Notes None recorded. Medical Equipment None Reported. Allergies Allergen ID Allergen Name Allergen Category Reaction Reaction Severity Criticality Documentation Date Start Date Code Code System Note Provider Name and Address Organization Details Recorded Time 8493 Substance with sulfonami de structure and antibacte rial mechanism of action (substanc e) medicatio n Not available Not available high 07/03/2024 00194 8003 [facility]ED [facility] 15:34:23 8633 nitrofura ntoin medicatio n other severe high 08/31/2024 7454 RxNorm possi ble throm bocyo tpeni a/ anemi a Jose Luis Howell, DO [address] [place], [address], [facility] 4 15:38:35 Medications Name Sig [...] completed Not Available Not Available Not Available amoxicillin 875 mg-potassium clavulanate 125 mg tablet TAKE 1 TABLET BY MOUTH TWICE DAILY active Not Available Not Available No t Available nitrofuranto in monohydrate/ macrocrystal s 100 [...] % 116 mm[Hg] 68 mm[Hg] Annie Rogers [facility] 5 15:21:49 Date Recorded Body height Heart rate Oxygen saturation Oxygen saturation in Arterial blood by Pulse oximetry Systolic blood pressure Diastolic blood pressure Provider Name and Address Organization Details Last Updated DateTime 5 187.96 cm 52 /min 98 % 98 % 116 mm[Hg] 68 mm[Hg] María Rosales [facility] 5 15:53:54 Date Recorded Body height Heart rate Oxygen saturation Oxygen saturation in Arterial blood by Pulse oximetry Systolic blood pressure Diastolic blood pressure Provider Name and Address Organization Details Last Updated DateTime 5 187.96 cm 60 /min 98 % 98 % 120 mm[Hg] 80 mm[Hg] Maríataylor Fitzpatrickmond [facility] 5 15:28:30 Date Recorded Body height Heart rate Oxygen saturation Oxygen saturation in Arterial blood by Pulse oximetry Systolic blood pressure Diastolic blood pressure Provider Name and Address Organization Details Last Updated DateTime 5 187.96 cm 66 /min 96 % 96 % 118 mm[Hg] 68 mm[Hg] Maríataylor Fitzpatrickmond [facility] 5 16:02:57 Date Recorded Body height Body mass index (BMI) Body weight Heart rate Oxygen saturation Oxygen saturation in Arterial blood by Pulse oximetry Systolic blood pressure Diastolic blood pressure Provider Name and Address Organization Details Last Updated DateTime 4 187.96 cm 24.7 kg/m2 70433.7 4 g 72 /min 99 % 99 % 118 mm[Hg] 60 mm[Hg] Jose Luis Howell DO [address] [place] [address], [address], [facility] 4 15:11:51 Social History Question Answer Notes LastModified by Peerio Details LastModified Time Tobacco Smoking Status [facility]2024 15:35:22 What Was The Date Of Your Most Recent Tobacco Screening? 02/09/2025 [email or web address] Information not available 02/09/2025 Sex: Unknown Functional Status Question Answer Note LastModified by Peerio Details LastModified Time Do you or have you ever used any other forms of tobacco or nicotine? No [email or web address] Information not available 02/09/2025 What is your level of alcohol consumption? Occasional [email or web address] Information not available 07/03/2024 Mental Status None recorded. Family History Nothing Reported. Medical History No medical history recorded. Past Encounters Encounter ID Performer Location Encounter Start Date Encounter Closed Date Diagnosis/Indication Diagnosis SNOMED-CT Code Diagnosis ICD10 Code Diagnosis Note [id number] Jose Luis Howell DO [facility] [address] [facility],[place] [address] 07/03/2024 15:30:21 07/03/2024 16:10:37 Depression screening 400154454 Z13.31 neg Lower gastrointestinal hemorrhage 37663238 K92.2 need to get old chart he refused a colonoscop y or GI work up Diverticul um of urinary bladder 763681271 N32.3 [id number] Jose Luis Howell [facility] [address] [facility],[place] [address] 08/31/2024 15:04:44 08/31/2024 15:54:11 Anemia 719723031 D64.9 noted bone marrow findings are poss related to nitrofuran toin and has been Secondary thrombocytopenia 149008638 D69.59 as above we must worry about the reaction of nitrofuran toin pt has apparently continued to take this Painful re ctal bleeding 490522149 K62.5 [id number] Jose Luis Howell [facility] [address] [facility],[place] [address] 2024 14:52:21 11/06/2024 08:03:59 Depression screening 999091581 Z13.31 neg Anemia 850810198 D64.9 noted bone marrow findings are poss related to nitrofuran toin and has been of and doing well ever sincetakin g iron and is feeling more energyneed follow up hgb done today Lower gastrointestinal hemorrhage 87971447 K92.2 seems stablehe has not had any further bleeding Secondary thrombocytopenia 282520908 D69.59 as above we must worry about the reaction of nitrofuran toin pt has apparently continued to take this will rechk lab today Primary hypomagnesemia 45199511 E83.42 will need to have a follow up lab Diverticul um of urinary bladder 977993186 N32.3 cystoscopy for this saturday discussed procedure and what to expect and some aftercare [id number] Jose Luis Howell [facility] [address] [facility],[place] [address] 12/07/2024 15:36:56 12/07/2024 16:18:59 Anemia 319745600 D64.9 noted bone marrow findings are poss related to nitrofuran toin and has been of and doing well ever sincetakin g iron and is feeling more energyneed follow up hgb done today Depression screening 171 364316 Z13.31 neg Lower gastrointestinal hemorrhage 81799060 K92.2 seems stablehe has not had any further bleeding Secondary thrombocytopenia 008361732 D69.59 as above we must worry about the reaction of nitrofuran toin pt has apparently continued to take this will rechk lab today Primary hypomagnesemia 49512645 E83.42 will need to have a follow up lab [id number] Jose Luis Howell DO [facility] [address] [facility] [address],[place] [address] 01/05/2025 15:17:55 01/05/2025 15:49:52 Depression screening 201466095 Z13.31 neg Anemia 529367159 D64.9 we dont know where he is at needs cbc and iron levels priornoted bone marrow findings are poss related to nitrofuran toin and has been of and doing well ever sincetakin g iron and is feeling more energyneed follow up hgb done today Lower gastrointestinal hemorrhage 92551093 K92.2 seems stablehe has not had any further bleeding Diverticul um of urinary bladder 481959848 N32.3 cystoscopy for this saturday discussed procedure and what to expect and some aftercare Health Concerns Section Related Observation LastModified by Organization Detai ls LastModified Time None Recorded Concern Status LastModified by Organization Details LastModified Time None Recorded Advance Directives Directive None Recorded Payers Encounter Date Sequence Insurance Name Policy Number Policy Gonzalez Covered Member ID Gonzalez Member ID Guarantor Name 08/31/2024 1 *SELF PAY* Ed tawana Stasz 2024 1 *SELF PAY* Ed tawana Stasz 12/07/2024 1 *SELF PAY* Ed mund Stasz 01/05/2025 1 [place]ICARE [place]: [facility] [employer] Gary Gardner Jr [id number] Gary Gardner Notes Date Note Type Note Provider Name and Address Organization Details Recorded Time 5 text/html here since hospitaliztion and is [...] much questioning Jose Luis Howell DO [address] [place], [address], [facility] 2024 16:00:04 5 text/html AnemiaReported [...] hemorrhoidsgetting his insurance squared away Jose Luis Macy Howell DO [address] [place], [address], [facility] 12/07/2024 16:18:49 5 text/html AnemiaReported bypatient.Timing:better Associated Symptoms:no shortness of breath; no chest pain; no abdominal pain; no nausea; no vomiting; no melena; no blood in stool; no weakness; no fatigue; no palpitations; no excessive sweating; normal nails; tolerant of cold; no nonfood cravings; no behavior problems; no symptoms of peripheral neuropathy; normal balance; no jaundice; no pallor; no weight loss here for eval and is doing better overallhe states he had undergone a colonoscopy and egd but i have NO records of thishe insists he is not bleeding but is still taking iron dailyhe also has a bladder diverticulum and apparently this is going to be removed possibly through robotics Jose Luis Howell DO [address] [place], [address], [facility] 01/05/2025 15:48:12
[2025-02-09 19:28] LABS: Platelet Count 89 X10*3/uL (160-400)
[2025-02-09 19:29] LABS: Hematocrit 13.1 % (42.0-52.0); Hemoglobin 4.5 g/dl (14.0-18.0)
== END 2025-02-09 16:24 | disposition home or self-care (01) ==
LOC: HO.MANLDS 16:23
PROVIDERS: Visit Provider Internal Medicine
DX: D64.9 Anemia, unspecified (principal)
CPT/HCPCS: 36415; 85025